=== PATIENT | male | born 1990 | race African-American/Black ===

== ENCOUNTER 2023-03-16 21:54 | Emergency (ER) | payer OTHER ==
[~2023-03-16] VITALS: Ht 182.9 cm; Wt 92.7 kg
[2023-03-16] MEDS ORDERED: diphenhydrAMINE 50MG/ML VIAL IM ONE (22:00)
[2023-03-16] MEDS ORDERED: LORazepam 2 MG/ML 1ML VIAL IM STA (22:00)
[2023-03-16] MEDS ORDERED: HALOPERIDOL 5MG/ML 1ML VIAL IM ONE (22:00)
[2023-03-16 22:26] LABS: BASO # 0.1 10^3/uL (0.0-0.2); BASO % 0.4 % (0.0-1.0); EOS # 0.2 10^3/uL (0.0-0.5); EOS % 1.5 % (0.0-3.0); HEMATOCRIT 45.8 % (42.0-52.0); HEMOGLOBIN 14.7 g/dl (13.5-17.5); LYMPH # 3.6 10^3/uL (1.5-5.0); LYMPH % 25.9 % (24.0-44.0); MEAN CORPUSCULAR HEMOGLOBIN 26.6 pg (27.0-33.0); MEAN CORPUSCULAR HGB CONC 32.1 g/dl (32.0-36.5); MONO # 1.1 10^3/uL (0.0-0.8); MONO % 7.8 % (2.0-8.0); NEUTROPHILS # 8.8 10^3/uL (1.5-8.5); NEUTROPHILS % 63.9 % (36.0-66.0); PLATELET COUNT, AUTOMATED 404 10^3/uL (150-450); RED BLOOD COUNT 5.52 10^6/uL (4.30-6.10); WHITE BLOOD COUNT 13.8 10^3/uL (4.0-10.0)
[2023-03-16 22:49] LABS: ALBUMIN 4.2 G/DL (3.2-5.2); ALKALINE PHOSPHATASE 72 U/L (46-116); ALT/SGPT 23 U/L (7.0-40); AST/SGOT 40 U/L (<34); BILIRUBIN,DIRECT < 0.1 MG/DL (<0.4); BILIRUBIN,TOTAL 0.3 MG/DL (0.3-1.2); BLOOD UREA NITROGEN 20 MG/DL (9-23); CALCIUM LEVEL 8.6 MG/DL (8.5-10.1); CARBON DIOXIDE LEVEL 24 MMOL/L (20-31); CHLORIDE LEVEL 105 MMOL/L (98-107); CREATININE FOR GFR 1.38 MG/DL (0.70-1.30); GLOMERULAR FILTRATION RATE > 60.0 (>60); GLUCOSE, FASTING 77 MG/DL (60-100); POTASSIUM SERUM 4.3 MMOL/L (3.5-5.1); SALICYLATE LEVEL < 3.0 MG/DL (<30); SODIUM LEVEL 144 MMOL/L (136-145); TOTAL PROTEIN 7.3 G/DL (5.7-8.2)
[2023-03-16] MEDS ORDERED: NS 1,000 ML IV ONE ×3 (22:50)
[2023-03-16 22:52] LABS: THYROID STIMULATING HORMONE 1.007 uIU/ML (0.55-4.78)
[2023-03-16 23:21] LABS: CPK CREATINE PHOSPHOKINASE 791 U/L (46-171); ETHYL ALCOHOL (ETHANOL) 0.317 % (0.000-0.010)
[2023-03-16] MEDS ORDERED: NALOXONE 2MG/2ML SYRINGE IV STA (23:22)
[2023-03-16 23:42] LABS: CANNABINOIDS URINE NEGATIVE (NEGATIVE); PHENCYCLIDINE URINE NEGATIVE (NEGATIVE)
[2023-03-16 23:43] LABS: AMPHETAMINES LEVEL URINE NEGATIVE (NEGATIVE); BARBITURATES URINE NEGATIVE (NEGATIVE); BENZODIAZEPINES URINE NEGATIVE (NEGATIVE); COCAINE METABOLITE URINE NEGATIVE (NEGATIVE); METHADONE URINE NEGATIVE (NEGATIVE); OPIATES URINE NEGATIVE (NEGATIVE)
[2023-03-16 23:51] LABS: ABG BASE EXCESS -6.7 (-2.0-2.0); ABG O2 SATURATION 96.8 % (95.0-99.0); ABG PARTIAL PRESSURE CO2 43.9 mmHg (35.0-45.0); ABG PARTIAL PRESSURE O2 103.9 mmHg (75.0-100.0); ABG STANDARD HCO3 19.1 MMOL/L. (22.0-26.0); ABG TOTAL CO2 21.3 MMOL/L (22.0-29.0); ABG pH (ARTERIAL) 7.276 UNITS (7.350-7.450)
[2023-03-17] MEDS ORDERED: UNRESOLVED CLARIFICATION ENTRY XX SCH (00:01)
[2023-03-17 09:04] VITALS: BP 122/54; TEMP 98.1; O2SAT 97
[2023-03-17] MEDS ORDERED: ZOLO25TA PO (23:11)
[2023-03-17] MEDS ORDERED: METO25TA4 PO (23:11)
[2023-03-17] MEDS ORDERED: GABA-282 PO (23:11)
[2023-03-17] MEDS ORDERED: HYDR50TA70 PO (23:11)
== END 2023-03-17 09:09 | disposition home or self-care (01) ==
LOC: M ED 21:54
DX: F10.129 Alcohol abuse with intoxication, unspecified (principal); R91.8 Other nonspecific abnormal finding of lung field; F11.10 Opioid abuse, uncomplicated
CPT/HCPCS: 36600; 71045; 80048; 80076; 80143; 80307; 82077; 82550; 82803; 83605; 84443; 85025; 93005; 93041; 94760; 96361; 96372; 96374; 99291; J1200; J1630; J2060; J2310

== ENCOUNTER 2023-03-17 23:06 | Emergency (ER) | payer OTHER, SELFPAY ==
[~2023-03-17] VITALS: Ht 193 cm; Wt 88.6 kg
[2023-03-17] MEDS ORDERED: HYDR50TA70 PO (23:11)
[2023-03-17] MEDS ORDERED: ZOLO25TA PO (23:11)
[2023-03-17] MEDS ORDERED: GABA-282 PO (23:11)
[2023-03-17] MEDS ORDERED: METO25TA4 PO (23:11)
[2023-03-17] MEDS ORDERED: LORazepam 2 MG TAB PO PRN (23:55)
[2023-03-17] MEDS ORDERED: OXAZEPAM 15MG CAP PO ONE (23:55)
[2023-03-18 00:15] LABS: BASO % 0.3 % (0.0-1.0); EOS # 0.2 10^3/uL (0.0-0.5); EOS % 2.1 % (0.0-3.0); HEMATOCRIT 39.9 % (42.0-52.0); HEMOGLOBIN 12.9 g/dl (13.5-17.5); LYMPH # 2.3 10^3/uL (1.5-5.0); LYMPH % 27.1 % (24.0-44.0); MEAN CORPUSCULAR HEMOGLOBIN 26.5 pg (27.0-33.0); MEAN CORPUSCULAR HGB CONC 32.3 g/dl (32.0-36.5); MEAN CORPUSCULAR VOLUME 82.1 fl (80.0-96.0); MONO # 0.7 10^3/uL (0.0-0.8); MONO % 8.4 % (2.0-8.0); NEUTROPHILS # 5.3 10^3/uL (1.5-8.5); NEUTROPHILS % 61.8 % (36.0-66.0); PLATELET COUNT, AUTOMATED 351 10^3/uL (150-450); RED BLOOD COUNT 4.86 10^6/uL (4.30-6.10); WHITE BLOOD COUNT 8.6 10^3/uL (4.0-10.0)
[2023-03-18] MEDS: THIAMINE 100 MG TAB PO SCH ×2 (00:20→07:36)
[2023-03-18 00:39] LABS: ETHYL ALCOHOL (ETHANOL) 0.094 % (0.000-0.010)
[2023-03-18 00:40] LABS: SALICYLATE LEVEL < 3.0 MG/DL (<30)
[2023-03-18 00:44] LABS: ALBUMIN 3.7 G/DL (3.2-5.2); ALKALINE PHOSPHATASE 77 U/L (46-116); ALT/SGPT 42 U/L (7.0-40); AST/SGOT 132 U/L (<34); BILIRUBIN,DIRECT 0.1 MG/DL (<0.4); BILIRUBIN,TOTAL 0.3 MG/DL (0.3-1.2); BLOOD UREA NITROGEN 16 MG/DL (9-23); CALCIUM LEVEL 8.4 MG/DL (8.5-10.1); CARBON DIOXIDE LEVEL 26 MMOL/L (20-31); CHLORIDE LEVEL 108 MMOL/L (98-107); CREATININE FOR GFR 1.01 MG/DL (0.70-1.30); GLOMERULAR FILTRATION RATE > 60.0 (>60); GLUCOSE, FASTING 118 MG/DL (60-100); POTASSIUM SERUM 3.9 MMOL/L (3.5-5.1); SODIUM LEVEL 140 MMOL/L (136-145); THYROID STIMULATING HORMONE 0.406 uIU/ML (0.55-4.78); TOTAL PROTEIN 6.8 G/DL (5.7-8.2)
[2023-03-18 02:09] LABS: AMPHETAMINES LEVEL URINE NEGATIVE (NEGATIVE); BARBITURATES URINE NEGATIVE (NEGATIVE); BENZODIAZEPINES URINE NEGATIVE (NEGATIVE); CANNABINOIDS URINE NEGATIVE (NEGATIVE); COCAINE METABOLITE URINE NEGATIVE (NEGATIVE); METHADONE URINE NEGATIVE (NEGATIVE); OPIATES URINE NEGATIVE (NEGATIVE); PHENCYCLIDINE URINE NEGATIVE (NEGATIVE)
[2023-03-18 08:52] VITALS: BP 135/75; TEMP 98; O2SAT 98
[2023-03-18] MEDS ORDERED: FOLIC ACID 1MG TAB PO SCH (09:00)
[2023-03-18] MEDS ORDERED: MULTIVITAMINS/MINERALS THERAP 1 TAB PO SCH (09:00)
[2023-03-19] MEDS ORDERED: SERT50TA29 PO (11:11)
[2023-03-19] MEDS ORDERED: METO1TAB32 PO (11:11)
== END 2023-03-18 08:58 | disposition home or self-care (01) ==
LOC: M ED 23:06
DX: F10.220 Alcohol dependence with intoxication, uncomplicated (principal); Z59.00 Homelessness unspecified; F41.9 Anxiety disorder, unspecified; Z20.822 Contact with and (suspected) exposure to COVID-19; Z79.899 Other long term (current) drug therapy

== ENCOUNTER 2023-03-19 07:56 | Emergency (ER) | payer OTHER ==
[~2023-03-19] VITALS: Ht 193 cm; Wt 90.3 kg
[~2023-03-19 07:56] MED LIST: GABA-282 PO; HYDR50TA70 PO; METO25TA4 PO; ZOLO25TA PO
[2023-03-19 10:20] VITALS: TEMP 96.8; O2SAT 99
[2023-03-19] MEDS ORDERED: METO1TAB32 PO (11:11)
[2023-03-19] MEDS ORDERED: SERT50TA29 PO (11:11)
[2023-03-19] MEDS ORDERED: MED REC IN PROGRESS XX SCH (11:30)
[2023-03-19 11:42] LABS: HEMATOCRIT 42.1 % (42.0-52.0); HEMOGLOBIN 13.7 g/dl (13.5-17.5); MEAN CORPUSCULAR HEMOGLOBIN 26.4 pg (27.0-33.0); MEAN CORPUSCULAR HGB CONC 32.5 g/dl (32.0-36.5); MEAN CORPUSCULAR VOLUME 81.3 fl (80.0-96.0); PLATELET COUNT, AUTOMATED 365 10^3/uL (150-450); RED BLOOD COUNT 5.18 10^6/uL (4.30-6.10); WHITE BLOOD COUNT 7.6 10^3/uL (4.0-10.0)
[2023-03-19 11:54] VITALS: BP 150/88
[2023-03-19 12:04] LABS: AMPHETAMINES LEVEL URINE NEGATIVE (NEGATIVE); BARBITURATES URINE NEGATIVE (NEGATIVE)
[2023-03-19 12:05] LABS: BENZODIAZEPINES URINE NEGATIVE (NEGATIVE); CANNABINOIDS URINE NEGATIVE (NEGATIVE); COCAINE METABOLITE URINE NEGATIVE (NEGATIVE); ETHYL ALCOHOL (ETHANOL) 0.279 % (0.000-0.010); METHADONE URINE NEGATIVE (NEGATIVE); OPIATES URINE NEGATIVE (NEGATIVE); PHENCYCLIDINE URINE NEGATIVE (NEGATIVE)
[2023-03-19] MEDS ORDERED: LORazepam 2 MG TAB PO PRN (12:05)
[2023-03-19 12:07] LABS: SALICYLATE LEVEL < 3.0 MG/DL (<30)
[2023-03-19 12:09] LABS: THYROID STIMULATING HORMONE 0.413 uIU/ML (0.55-4.78)
[2023-03-19] MEDS ORDERED: OXAZEPAM 15MG CAP PO ONE (12:10)
[2023-03-19 12:11] LABS: ALKALINE PHOSPHATASE 82 U/L (46-116); ALT/SGPT 51 U/L (7.0-40); AST/SGOT 111 U/L (<34); BILIRUBIN,DIRECT 0.2 MG/DL (<0.4); BILIRUBIN,TOTAL 0.5 MG/DL (0.3-1.2); BLOOD UREA NITROGEN 7 MG/DL (9-23); CARBON DIOXIDE LEVEL 30 MMOL/L (20-31); CHLORIDE LEVEL 109 MMOL/L (98-107); CREATININE FOR GFR 0.82 MG/DL (0.70-1.30); GLOMERULAR FILTRATION RATE > 60.0 (>60); GLUCOSE, FASTING 104 MG/DL (60-100); POTASSIUM SERUM 4.2 MMOL/L (3.5-5.1); SODIUM LEVEL 147 MMOL/L (136-145); TOTAL PROTEIN 7.1 G/DL (5.7-8.2)
[2023-03-19] MEDS ORDERED: THIAMINE 100 MG TAB PO SCH (21:00)
[2023-03-20] MEDS ORDERED: MULTIVITAMINS/MINERALS THERAP 1 TAB PO SCH (09:00)
[2023-03-20] MEDS ORDERED: FOLIC ACID 1MG TAB PO SCH (09:00)
[2023-03-20] MEDS ORDERED: NICO1DIS11 TOP (11:17)
[2023-03-20] MEDS ORDERED: BUSP15TA47 PO (11:17)
== END 2023-03-19 13:55 | disposition left against medical advice (07) ==
LOC: M ED 07:56
DX: F10.10 Alcohol abuse, uncomplicated (principal); Z53.9 Procedure and treatment not carried out, unspecified reason; Z59.00 Homelessness unspecified; Q87.418 Marfan syndrome with other cardiovascular manifestations

== ENCOUNTER 2023-03-19 15:14 | Emergency (ER) | payer OTHER ==
[~2023-03-19] VITALS: Ht 193 cm; Wt 92.4 kg
[2023-03-19 15:14] VITALS: BP 134/78; TEMP 98.2; O2SAT 99
[~2023-03-19 15:14] MED LIST changes: +METO1TAB32 PO; +SERT50TA29 PO
[2023-03-20] MEDS ORDERED: NICO1DIS11 TOP (11:17)
[2023-03-20] MEDS ORDERED: BUSP15TA47 PO (11:17)
== END 2023-03-19 17:52 | disposition left against medical advice (07) ==
LOC: M ED 15:14
DX: Z53.21 Procedure and treatment not carried out due to patient leaving prior to being seen by health care provider (principal)

== ENCOUNTER 2023-03-19 17:55 | Emergency (ER) | payer OTHER ==
[~2023-03-19] VITALS: Ht 193 cm; Wt 92.4 kg
[2023-03-19 18:56] LABS: HEMOGLOBIN 13.9 g/dl (13.5-17.5); MEAN CORPUSCULAR HEMOGLOBIN 26.6 pg (27.0-33.0); MEAN CORPUSCULAR HGB CONC 33.1 g/dl (32.0-36.5); MEAN CORPUSCULAR VOLUME 80.5 fl (80.0-96.0); PLATELET COUNT, AUTOMATED 379 10^3/uL (150-450); RED BLOOD COUNT 5.22 10^6/uL (4.30-6.10); WHITE BLOOD COUNT 9.3 10^3/uL (4.0-10.0)
[2023-03-19 19:16] LABS: AMPHETAMINES LEVEL URINE NEGATIVE (NEGATIVE); BARBITURATES URINE NEGATIVE (NEGATIVE); BENZODIAZEPINES URINE NEGATIVE (NEGATIVE); COCAINE METABOLITE URINE NEGATIVE (NEGATIVE); METHADONE URINE NEGATIVE (NEGATIVE)
[2023-03-19 19:17] LABS: CANNABINOIDS URINE NEGATIVE (NEGATIVE); OPIATES URINE NEGATIVE (NEGATIVE); PHENCYCLIDINE URINE NEGATIVE (NEGATIVE)
[2023-03-19 19:20] LABS: ALBUMIN 3.8 G/DL (3.2-5.2); ALKALINE PHOSPHATASE 83 U/L (46-116); ALT/SGPT 52 U/L (7.0-40); AST/SGOT 105 U/L (<34); BILIRUBIN,DIRECT 0.1 MG/DL (<0.4); BILIRUBIN,TOTAL 0.3 MG/DL (0.3-1.2); BLOOD UREA NITROGEN 5 MG/DL (9-23); CALCIUM LEVEL 9.1 MG/DL (8.5-10.1); CARBON DIOXIDE LEVEL 27 MMOL/L (20-31); CHLORIDE LEVEL 109 MMOL/L (98-107); GLOMERULAR FILTRATION RATE > 60.0 (>60); GLUCOSE, FASTING 105 MG/DL (60-100); POTASSIUM SERUM 3.9 MMOL/L (3.5-5.1); SALICYLATE LEVEL < 3.0 MG/DL (<30); SODIUM LEVEL 142 MMOL/L (136-145); TOTAL PROTEIN 7.2 G/DL (5.7-8.2)
[2023-03-19 19:22] LABS: THYROID STIMULATING HORMONE 0.856 uIU/ML (0.55-4.78)
[2023-03-19] MEDS ORDERED: MED REC IN PROGRESS XX SCH (19:35)
[2023-03-19 19:55] LABS: ETHYL ALCOHOL (ETHANOL) 0.332 % (0.000-0.010)
[2023-03-19] MEDS ORDERED: LORazepam 2 MG TAB PO PRN (20:40)
[2023-03-19] MEDS: THIAMINE 100 MG TAB PO SCH (21:47)
[2023-03-19] MEDS ORDERED: MED REC CURRENTLY UNOBTAINABLE XX SCH (23:45)
[2023-03-20] MEDS ORDERED: FOLIC ACID 1MG TAB PO SCH (09:00)
[2023-03-20] MEDS ORDERED: MULTIVITAMINS/MINERALS THERAP 1 TAB PO SCH (09:00)
[2023-03-20] MEDS: THIAMINE 100 MG TAB PO SCH (09:55)
[2023-03-20] MEDS ORDERED: NICO1DIS11 TOP (11:17)
[2023-03-20] MEDS ORDERED: BUSP15TA47 PO (11:17)
[2023-03-20] MEDS ORDERED: HOME MED LIST COMPLETE! XX SCH (11:40)
[2023-03-20 15:36] VITALS: BP 152/83; TEMP 98.7; O2SAT 99
== END 2023-03-20 15:43 | disposition home or self-care (01) ==
LOC: M ED 17:55
DX: F10.129 Alcohol abuse with intoxication, unspecified (principal); F41.9 Anxiety disorder, unspecified; F32.A Depression, unspecified; Y90.8 Blood alcohol level of 240 mg/100 ml or more; Z79.899 Other long term (current) drug therapy

== ENCOUNTER 2023-03-20 21:43 | Emergency (ER) | payer OTHER ==
[~2023-03-20] VITALS: Ht 193 cm; Wt 88.6 kg
[~2023-03-20 21:43] MED LIST changes: +BUSP15TA47 PO; +NICO1DIS11 TOP
[2023-03-20 21:44] VITALS: BP 156/85; TEMP 99; O2SAT 96
== END 2023-03-21 01:44 | disposition home or self-care (01) ==
LOC: M ED 21:43
DX: Z59.00 Homelessness unspecified (principal); F10.120 Alcohol abuse with intoxication, uncomplicated; F17.210 Nicotine dependence, cigarettes, uncomplicated; Z79.899 Other long term (current) drug therapy

== ENCOUNTER 2023-03-22 00:53 | Emergency (ER) | payer OTHER ==
[~2023-03-22] VITALS: Ht 193 cm; Wt 88.8 kg
[2023-03-22 00:55] VITALS: BP 154/88; TEMP 98.1; O2SAT 98
== END 2023-03-22 04:36 | disposition left against medical advice (07) ==
LOC: M ED 00:53
DX: Z53.21 Procedure and treatment not carried out due to patient leaving prior to being seen by health care provider (principal)

== ENCOUNTER 2023-04-04 12:30 | Emergency (ER) | payer OTHER ==
[~2023-04-04] VITALS: Ht 193 cm; Wt 88.6 kg
[2023-04-04 12:30] VITALS: BP 122/75; TEMP 97.4; O2SAT 95
[2023-04-04] MEDS ORDERED: CLON0.5T2 (12:42)
[2023-04-04] MEDS ORDERED: HYDR50CA2 (12:42)
== END 2023-04-04 13:09 | disposition home or self-care (01) ==
LOC: M ED 12:30
DX: Z76.0 Encounter for issue of repeat prescription (principal); F41.9 Anxiety disorder, unspecified

== ENCOUNTER 2023-04-14 05:42 | Emergency (ER) | payer OTHER ==
[~2023-04-14 05:42] MED LIST changes: +CLON0.5T2 PO; +HYDR50CA2
[2023-04-14] MEDS ORDERED: HALOPERIDOL 5MG/ML 1ML VIAL As Ordered ONE (05:53)
[2023-04-14] MEDS: LORazepam 2 MG/ML 1ML VIAL IM ONE (05:58)
[2023-04-14] MEDS: HALOPERIDOL 5MG/ML 1ML VIAL IM ONE (05:58)
[2023-04-14 06:48] LABS: HEMATOCRIT 38.2 % (42.0-52.0); HEMOGLOBIN 12.2 g/dl (13.5-17.5); MEAN CORPUSCULAR HEMOGLOBIN 27.1 pg (27.0-33.0); MEAN CORPUSCULAR HGB CONC 31.9 g/dl (32.0-36.5); MEAN CORPUSCULAR VOLUME 84.7 fl (80.0-96.0); PLATELET COUNT, AUTOMATED 397 10^3/uL (150-450); RED BLOOD COUNT 4.51 10^6/uL (4.30-6.10); WHITE BLOOD COUNT 8.9 10^3/uL (4.0-10.0)
[2023-04-14 07:14] LABS: SALICYLATE LEVEL < 3.0 MG/DL (<30)
[2023-04-14 07:15] LABS: ALBUMIN 3.4 G/DL (3.2-5.2); ALKALINE PHOSPHATASE 68 U/L (46-116); ALT/SGPT 25 U/L (7.0-40); AST/SGOT 29 U/L (<34); BILIRUBIN,DIRECT < 0.1 MG/DL (<0.4); BILIRUBIN,TOTAL < 0.2 MG/DL (0.3-1.2); BLOOD UREA NITROGEN 11 MG/DL (9-23); CARBON DIOXIDE LEVEL 23 MMOL/L (20-31); CHLORIDE LEVEL 107 MMOL/L (98-107); CREATININE FOR GFR 1.07 MG/DL (0.70-1.30); GLOMERULAR FILTRATION RATE > 60.0 (>60); GLUCOSE, FASTING 102 MG/DL (60-100); POTASSIUM SERUM 4.2 MMOL/L (3.5-5.1); SODIUM LEVEL 140 MMOL/L (136-145); TOTAL PROTEIN 6.4 G/DL (5.7-8.2)
[2023-04-14 07:17] LABS: THYROID STIMULATING HORMONE 2.163 uIU/ML (0.55-4.78)
[2023-04-14 07:24] LABS: BARBITURATES URINE NEGATIVE (NEGATIVE); BENZODIAZEPINES URINE NEGATIVE (NEGATIVE); CANNABINOIDS URINE NEGATIVE (NEGATIVE); COCAINE METABOLITE URINE NEGATIVE (NEGATIVE); METHADONE URINE NEGATIVE (NEGATIVE); OPIATES URINE NEGATIVE (NEGATIVE); PHENCYCLIDINE URINE NEGATIVE (NEGATIVE)
[2023-04-14 07:29] LABS: AMPHETAMINES LEVEL URINE POSITIVE (NEGATIVE)
[2023-04-14 08:09] LABS: ETHYL ALCOHOL (ETHANOL) 0.327 % (0.000-0.010)
[2023-04-14 18:06] VITALS: BP 127/73; TEMP 97.1; O2SAT 95
== END 2023-04-14 18:09 | disposition home or self-care (01) ==
LOC: M ED 05:42
DX: F10.120 Alcohol abuse with intoxication, uncomplicated (principal); F15.120 Other stimulant abuse with intoxication, uncomplicated; F41.9 Anxiety disorder, unspecified; Z79.899 Other long term (current) drug therapy
CPT/HCPCS: 51701; 80048; 80076; 80143; 80307; 82077; 84443; 85027; 87635; 96372; 99285; J1630; J2060

== ENCOUNTER 2023-04-18 23:51 | Emergency (ER) | payer OTHER ==
[~2023-04-18] VITALS: Ht 223.5 cm; Wt 88.7 kg
[2023-04-19] MEDS ORDERED: HALOPERIDOL 5MG/ML 1ML VIAL As Ordered ONE (00:12)
[2023-04-19] MEDS: LORazepam 2 MG/ML 1ML VIAL IM ONE (00:21)
[2023-04-19] MEDS: diphenhydrAMINE 50MG/ML VIAL IM ONE (00:21)
[2023-04-19] MEDS: HALOPERIDOL 5MG/ML 1ML VIAL IM ONE (00:22)
[2023-04-19 00:34] LABS: HEMATOCRIT 40.3 % (42.0-52.0); HEMOGLOBIN 13.3 g/dl (13.5-17.5); MEAN CORPUSCULAR HEMOGLOBIN 26.9 pg (27.0-33.0); MEAN CORPUSCULAR VOLUME 81.6 fl (80.0-96.0); PLATELET COUNT, AUTOMATED 371 10^3/uL (150-450); RED BLOOD COUNT 4.94 10^6/uL (4.30-6.10); WHITE BLOOD COUNT 6.9 10^3/uL (4.0-10.0)
[2023-04-19 00:52] LABS: AMPHETAMINES LEVEL URINE NEGATIVE (NEGATIVE); BARBITURATES URINE NEGATIVE (NEGATIVE); CANNABINOIDS URINE NEGATIVE (NEGATIVE); COCAINE METABOLITE URINE NEGATIVE (NEGATIVE); METHADONE URINE NEGATIVE (NEGATIVE); OPIATES URINE NEGATIVE (NEGATIVE); PHENCYCLIDINE URINE NEGATIVE (NEGATIVE)
[2023-04-19 00:53] LABS: BENZODIAZEPINES URINE POSITIVE (NEGATIVE)
[2023-04-19 00:55] LABS: ETHYL ALCOHOL (ETHANOL) 0.293 % (0.000-0.010)
[2023-04-19 00:56] LABS: CPK CREATINE PHOSPHOKINASE 408 U/L (46-171); SALICYLATE LEVEL < 3.0 MG/DL (<30)
[2023-04-19 00:57] LABS: ALBUMIN 3.7 G/DL (3.2-5.2); ALKALINE PHOSPHATASE 76 U/L (46-116); ALT/SGPT 21 U/L (7.0-40); AST/SGOT 29 U/L (<34); BILIRUBIN,DIRECT < 0.1 MG/DL (<0.4); BILIRUBIN,TOTAL 0.2 MG/DL (0.3-1.2); BLOOD UREA NITROGEN 8 MG/DL (9-23); CALCIUM LEVEL 8.3 MG/DL (8.5-10.1); CARBON DIOXIDE LEVEL 25 MMOL/L (20-31); CHLORIDE LEVEL 107 MMOL/L (98-107); CREATININE FOR GFR 0.99 MG/DL (0.70-1.30); GLOMERULAR FILTRATION RATE > 60.0 (>60); GLUCOSE, FASTING 95 MG/DL (60-100); POTASSIUM SERUM 3.8 MMOL/L (3.5-5.1); SODIUM LEVEL 140 MMOL/L (136-145); TOTAL PROTEIN 6.9 G/DL (5.7-8.2)
[2023-04-19 01:07] LABS: RSV AMPLIFICATION NEGATIVE (NEGATIVE)
[2023-04-19] MEDS: NS 1,000 ML IV ONE ×2 (05:25→05:43)
[2023-04-19] MEDS ORDERED: NICOTINE 21MG/24HR 1 EA TRANSDERMAL TOP SCH ×2 (09:00)
[2023-04-19 12:38] VITALS: BP 123/82
[2023-04-19] MEDS: METOPROLOL SUCC *XL* 25MG TAB (TopROL *XL*) PO SCH (12:38)
[2023-04-19] MEDS: busPIRone 5 MG TAB PO SCH (12:38)
[2023-04-19] MEDS: SERTRALINE HCL 50 MG TAB PO SCH (12:38)
[2023-04-19] MEDS: GABAPENTIN 300 MG CAP PO SCH (12:38)
[2023-04-19] MEDS ORDERED: B-1100TA2 PO (16:27)
[2023-04-19] MEDS ORDERED: DIAZ10TA2 PO (16:27)
[2023-04-19] MEDS ORDERED: OLAN1TAB20 PO (16:27)
[2023-04-19] MEDS ORDERED: FOLI1TAB11 PO (16:27)
[2023-04-19] MEDS ORDERED: HYDR50CA2 PO (16:31)
[2023-04-19] MEDS ORDERED: MAGN400T2 PO (16:38)
[2023-04-19] MEDS ORDERED: HOME MED LIST COMPLETE! XX SCH (16:50)
[2023-04-19 17:25] VITALS: BP 139/86; TEMP 98.6; O2SAT 98
== END 2023-04-19 17:43 | disposition home or self-care (01) ==
LOC: M ED 23:51
DX: F10.120 Alcohol abuse with intoxication, uncomplicated (principal); F19.10 Other psychoactive substance abuse, uncomplicated; F43.0 Acute stress reaction; I45.19 Other right bundle-branch block; Z79.899 Other long term (current) drug therapy
CPT/HCPCS: 73130; 80048; 80076; 80143; 80307; 82077; 82550; 84443; 85027; 87631; 93005; 96361; 96372; 99285; J1200; J1630; J2060

== ENCOUNTER 2023-06-05 11:57 | Emergency (ER) | payer OTHER ==
[~2023-06-05 11:57] MED LIST changes: +B-1100TA2 PO; +DIAZ10TA2 PO; +FOLI1TAB11 PO; +HYDR50CA2 PO; +MAGN400T2 PO; +OLAN1TAB20 PO
[2023-06-05 11:58] VITALS: BP 135/65; TEMP 98; O2SAT 99
[2023-06-05] MEDS ORDERED: BUPR-71 PO (19:25)
== END 2023-06-05 13:08 | disposition left against medical advice (07) ==
LOC: M ED 12:48
DX: F10.120 Alcohol abuse with intoxication, uncomplicated (principal); Z79.899 Other long term (current) drug therapy; Z53.9 Procedure and treatment not carried out, unspecified reason

== ENCOUNTER 2023-06-05 14:35 | Emergency (ER) | payer OTHER ==
[2023-06-05 14:54] LABS: BASO # 0.1 10^3/uL (0.0-0.2); BASO % 0.7 % (0.0-1.0); EOS # 0.4 10^3/uL (0.0-0.5); EOS % 5.5 % (0.0-3.0); HEMATOCRIT 41.9 % (42.0-52.0); HEMOGLOBIN 13.3 g/dl (13.5-17.5); LYMPH # 3.2 10^3/uL (1.5-5.0); LYMPH % 46.6 % (24.0-44.0); MEAN CORPUSCULAR HEMOGLOBIN 27.6 pg (27.0-33.0); MEAN CORPUSCULAR HGB CONC 31.7 g/dl (32.0-36.5); MEAN CORPUSCULAR VOLUME 86.9 fl (80.0-96.0); MONO # 0.5 10^3/uL (0.0-0.8); MONO % 7.6 % (2.0-8.0); NEUTROPHILS # 2.7 10^3/uL (1.5-8.5); NEUTROPHILS % 39.2 % (36.0-66.0); PLATELET COUNT, AUTOMATED 356 10^3/uL (150-450); RED BLOOD COUNT 4.82 10^6/uL (4.30-6.10); WHITE BLOOD COUNT 6.9 10^3/uL (4.0-10.0)
[2023-06-05 15:24] LABS: AMPHETAMINES LEVEL URINE NEGATIVE (NEGATIVE); BARBITURATES URINE NEGATIVE (NEGATIVE); BENZODIAZEPINES URINE NEGATIVE (NEGATIVE); CANNABINOIDS URINE NEGATIVE (NEGATIVE); COCAINE METABOLITE URINE NEGATIVE (NEGATIVE); METHADONE URINE NEGATIVE (NEGATIVE); OPIATES URINE NEGATIVE (NEGATIVE); PHENCYCLIDINE URINE NEGATIVE (NEGATIVE)
[2023-06-05 15:28] LABS: SALICYLATE LEVEL < 3.0 MG/DL (<30)
[2023-06-05 15:58] LABS: ALBUMIN 3.6 G/DL (3.2-5.2); ALKALINE PHOSPHATASE 77 U/L (46-116); ALT/SGPT 21 U/L (7.0-40); AST/SGOT 22 U/L (<34); BILIRUBIN,DIRECT < 0.1 MG/DL (<0.4); BILIRUBIN,TOTAL < 0.2 MG/DL (0.3-1.2); BLOOD UREA NITROGEN < 5 MG/DL (9-23); CALCIUM LEVEL 8.7 MG/DL (8.5-10.1); CARBON DIOXIDE LEVEL 27 MMOL/L (20-31); CHLORIDE LEVEL 111 MMOL/L (98-107); CPK CREATINE PHOSPHOKINASE 231 U/L (46-171); GLOMERULAR FILTRATION RATE > 60.0 (>60); GLUCOSE, FASTING 111 MG/DL (60-100); POTASSIUM SERUM 4.4 MMOL/L (3.5-5.1); SODIUM LEVEL 148 MMOL/L (136-145); THYROID STIMULATING HORMONE 0.118 uIU/ML (0.55-4.78); TOTAL PROTEIN 6.6 G/DL (5.7-8.2)
[2023-06-05] MEDS ORDERED: BUPR-71 PO (19:25)
[2023-06-05] MEDS ORDERED: HOME MED LIST COMPLETE! XX SCH (19:30)
[2023-06-05 22:55] VITALS: BP 128/78; TEMP 98.7; O2SAT 98
== END 2023-06-06 00:13 | disposition home or self-care (01) ==
LOC: M ED 14:35 → EDBD 14:35 → M ED 06-06 00:13
DX: F43.0 Acute stress reaction (principal); F10.120 Alcohol abuse with intoxication, uncomplicated; Z79.899 Other long term (current) drug therapy

== ENCOUNTER 2023-06-13 03:36 | Inpatient (IN) | payer OTHER ==
[~2023-06-13] VITALS: Ht 182.9 cm; Wt 89.2 kg
[2023-06-13] VITALS (24 sets, daily range): BP systolic 85–141; BP diastolic 49–86; TEMP 97.7–98.9; O2SAT 92–100
[~2023-06-13 03:36] MED LIST changes: +BUPR-71 PO
[2023-06-13] MEDS ORDERED: HALOPERIDOL 5MG/ML 1ML VIAL As Ordered ONE (03:41)
[2023-06-13] MEDS ORDERED: diphenhydrAMINE 50MG/ML VIAL As Ordered ONE (03:41)
[2023-06-13] MEDS ORDERED: LORazepam 2 MG/ML 1ML VIAL As Ordered ONE (03:42)
[2023-06-13] MEDS: HALOPERIDOL 5MG/ML 1ML VIAL IM ONE (03:49)
[2023-06-13] MEDS: diphenhydrAMINE 50MG/ML VIAL IM ONE (03:49)
[2023-06-13] MEDS: LORazepam 2 MG/ML 1ML VIAL IM ONE (03:49)
[2023-06-13] MEDS: NS 1,000 ML IV ONE ×2 (04:20→05:28)
[2023-06-13 04:34] LABS: BASO % 0.5 % (0.0-1.0); EOS # 0.1 10^3/uL (0.0-0.5); EOS % 1.6 % (0.0-3.0); HEMATOCRIT 40.4 % (42.0-52.0); HEMOGLOBIN 12.6 g/dl (13.5-17.5); LYMPH # 1.4 10^3/uL (1.5-5.0); LYMPH % 16.3 % (24.0-44.0); MEAN CORPUSCULAR HEMOGLOBIN 27.7 pg (27.0-33.0); MEAN CORPUSCULAR HGB CONC 31.2 g/dl (32.0-36.5); MEAN CORPUSCULAR VOLUME 88.8 fl (80.0-96.0); MONO # 0.4 10^3/uL (0.0-0.8); MONO % 4.9 % (2.0-8.0); NEUTROPHILS # 6.3 10^3/uL (1.5-8.5); NEUTROPHILS % 75.7 % (36.0-66.0); PLATELET COUNT, AUTOMATED 323 10^3/uL (150-450); RED BLOOD COUNT 4.55 10^6/uL (4.30-6.10); WHITE BLOOD COUNT 8.4 10^3/uL (4.0-10.0)
[2023-06-13] MEDS: MIDAZOLAM 100MG/100ML-0.9%NACL 100 MG in IV 1 EA IV SCH ×2 (04:41→23:12)
[2023-06-13 04:51] LABS: ABG HCO3 22.9 MMOL/L (22.0-26.0); ABG PARTIAL PRESSURE CO2 54.7 mmHg (35.0-45.0); ABG PARTIAL PRESSURE O2 92.6 mmHg (75.0-100.0); ABG STANDARD HCO3 20.3 MMOL/L. (22.0-26.0); ABG TOTAL CO2 24.6 MMOL/L (22.0-29.0)
[2023-06-13 05:00] LABS: BLOOD UREA NITROGEN 10 MG/DL (9-23); CALCIUM LEVEL 7.8 MG/DL (8.5-10.1); CARBON DIOXIDE LEVEL 28 MMOL/L (20-31); CHLORIDE LEVEL 106 MMOL/L (98-107); CREATININE FOR GFR 1.23 MG/DL (0.70-1.30); GLOMERULAR FILTRATION RATE > 60.0 (>60); GLUCOSE, FASTING 124 MG/DL (60-100); POTASSIUM SERUM 4.2 MMOL/L (3.5-5.1); SALICYLATE LEVEL < 3.0 MG/DL (<30); SODIUM LEVEL 144 MMOL/L (136-145)
[2023-06-13 05:06] LABS: AMPHETAMINES LEVEL URINE NEGATIVE (NEGATIVE)
[2023-06-13 05:07] LABS: BENZODIAZEPINES URINE NEGATIVE (NEGATIVE); CANNABINOIDS URINE NEGATIVE (NEGATIVE); PHENCYCLIDINE URINE NEGATIVE (NEGATIVE)
[2023-06-13 05:09] LABS: ETHYL ALCOHOL (ETHANOL) 0.284 % (0.000-0.010)
[2023-06-13 05:11] LABS: BARBITURATES URINE NEGATIVE (NEGATIVE); COCAINE METABOLITE URINE NEGATIVE (NEGATIVE)
[2023-06-13 05:24] LABS: METHADONE URINE NEGATIVE (NEGATIVE); OPIATES URINE NEGATIVE (NEGATIVE)
[2023-06-13] MEDS: ETOMIDATE INJ 20MG/10ML VIAL IV STA (05:27)
[2023-06-13] MEDS: ROCURONIUM BROMIDE 50MG/5ML VIAL IV SCH (05:27)
[2023-06-13] MEDS ORDERED: ALBUTEROL SULFATE 2.5MG/0.5ML INH NEB SOLN NEB PRN (05:35)
[2023-06-13] MEDS ORDERED: MED REC CURRENTLY UNOBTAINABLE XX SCH (05:55)
[2023-06-13 06:19] LABS: ABG BASE EXCESS -5.9 (-2.0-2.0); ABG O2 SATURATION 98.5 % (95.0-99.0); ABG PARTIAL PRESSURE CO2 40.6 mmHg (35.0-45.0); ABG PARTIAL PRESSURE O2 147.8 mmHg (75.0-100.0); ABG STANDARD HCO3 19.7 MMOL/L. (22.0-26.0); ABG TOTAL CO2 21.2 MMOL/L (22.0-29.0)
[2023-06-13] MEDS: THIAMINE 200MG 2ML VIAL IM ONE (06:31)
[2023-06-13] MEDS ORDERED: MIDAZOLAM INJ 2MG/2ML VIAL As Ordered ONE (08:07)
[2023-06-13] MEDS: LR 1,000 ML IV ONE (08:21)
[2023-06-13] MEDS: FOLIC ACID 1MG TAB PO SCH (08:21)
[2023-06-13] MEDS: MULTIVITAMINS/MINERALS THERAP 1 TAB PO SCH (08:22)
[2023-06-13] MEDS: LR 1,000 ML IV SCH (08:22)
[2023-06-13] MEDS: PANTOPRAZOLE 40MG VIAL IV SCH (08:22)
[2023-06-13] MEDS: MIDAZOLAM INJ 2MG/2ML VIAL IV PRN (09:34)
[2023-06-13] MEDS: dexmedeTOMidine 200 MCG in IV 1 EA IV SCH (09:45)
[2023-06-13] MEDS ORDERED: MULT400T10 PO (09:56)
[2023-06-13] MEDS ORDERED: BUPR150T12 PO (09:56)
[2023-06-13] MEDS ORDERED: ACAM0.05 PO (09:56)
[2023-06-13] MEDS ORDERED: ONDA-83 PO (09:56)
[2023-06-13] MEDS ORDERED: GABA800T4 PO (09:56)
[2023-06-13] MEDS ORDERED: HOME MED LIST COMPLETE! XX SCH ×2 (10:00→18:50)
[2023-06-13] MEDS: HEPARIN SOD (PORCINE) 5000UNITS/ML 1ML VIAL/SYRINGE SC SCH (14:13)
[2023-06-13] MEDS: fentaNYL 100 MCG/2 ML INJECTION IV PRN (16:32)
[2023-06-13] MEDS ORDERED: FENTANYL DRIP LOCK BOX KEY 1 EACH XX PRN (18:15)
[2023-06-13] MEDS: fentaNYL CITRATE/NaCl 1,000 MCG in IV 1 EA IV SCH (18:37)
[2023-06-14] VITALS (13 sets, daily range): BP systolic 126–150; BP diastolic 69–90; TEMP 98.1–98.9; O2SAT 93–99
[2023-06-14 04:42] LABS: HEMATOCRIT 35.8 % (42.0-52.0); HEMOGLOBIN 11.6 g/dl (13.5-17.5); MEAN CORPUSCULAR HEMOGLOBIN 27.7 pg (27.0-33.0); MEAN CORPUSCULAR HGB CONC 32.4 g/dl (32.0-36.5); MEAN CORPUSCULAR VOLUME 85.4 fl (80.0-96.0); PLATELET COUNT, AUTOMATED 242 10^3/uL (150-450); RED BLOOD COUNT 4.19 10^6/uL (4.30-6.10)
[2023-06-14 05:17] LABS: ALBUMIN 2.5 G/DL (3.2-5.2); ALKALINE PHOSPHATASE 64 U/L (46-116); ALT/SGPT 19 U/L (7.0-40); AST/SGOT 25 U/L (<34); BILIRUBIN,TOTAL 0.5 MG/DL (0.3-1.2); BLOOD UREA NITROGEN 10 MG/DL (9-23); CALCIUM LEVEL 7.7 MG/DL (8.5-10.1); CARBON DIOXIDE LEVEL 27 MMOL/L (20-31); CHLORIDE LEVEL 108 MMOL/L (98-107); CREATININE FOR GFR 0.96 MG/DL (0.70-1.30); GLOMERULAR FILTRATION RATE > 60.0 (>60); GLUCOSE, FASTING 97 MG/DL (60-100); POTASSIUM SERUM 3.8 MMOL/L (3.5-5.1); SODIUM LEVEL 141 MMOL/L (136-145); TOTAL PROTEIN 5.2 G/DL (5.7-8.2)
[2023-06-14 06:08] LABS: ABG BASE EXCESS 1.5 (-2.0-2.0); ABG HCO3 25.5 MMOL/L (22.0-26.0); ABG O2 SATURATION 97.1 % (95.0-99.0); ABG PARTIAL PRESSURE CO2 38.2 mmHg (35.0-45.0); ABG PARTIAL PRESSURE O2 90.9 mmHg (75.0-100.0); ABG STANDARD HCO3 25.8 MMOL/L. (22.0-26.0); ABG TOTAL CO2 26.7 MMOL/L (22.0-29.0); ABG pH (ARTERIAL) 7.443 UNITS (7.350-7.450)
[2023-06-14] MEDS ORDERED: dexmedeTOMidine 200 MCG in IV 1 EA IV SCH (08:27)
[2023-06-14] MEDS ORDERED: THIAMINE 200MG 2ML VIAL IM SCH (09:00)
[2023-06-14] MEDS: THIAMINE 100 MG TAB PO SCH (09:00)
== END 2023-06-14 11:47 | disposition left against medical advice (07) | DRG 133 ==
LOC: EDBD 03:36 → M ED 03:36 → M ED INP 05:32 → M ICU 06:14
PROVIDERS: ADMIT Internal Medicine; ATTEND Internal Medicine Pulmonary Disease
PROC: 0BH17EZ Insertion of Endotracheal Airway into Trachea, Via Natural or Artificial Opening (ICD-10-PCS; principal; 2023-06-13)
PROC: 5A1945Z Respiratory Ventilation, 24-96 Consecutive Hours (ICD-10-PCS; 2023-06-13)
DX: J96.00 Acute respiratory failure, unspecified whether with hypoxia or hypercapnia (principal); F10.221 Alcohol dependence with intoxication delirium; Q87.40 Marfan syndrome, unspecified; F41.9 Anxiety disorder, unspecified; Z79.899 Other long term (current) drug therapy

== ENCOUNTER 2023-06-16 13:11 | Emergency (ER) | payer OTHER ==
[~2023-06-16 13:11] MED LIST changes: +ACAM0.05 PO; +BUPR150T12 PO; +GABA800T4 PO; +MULT400T10 PO; +ONDA-83 PO
[2023-06-16 13:14] VITALS: TEMP 98
[2023-06-16 14:13] LABS: HEMATOCRIT 41.9 % (42.0-52.0); HEMOGLOBIN 13.4 g/dl (13.5-17.5); MEAN CORPUSCULAR HEMOGLOBIN 27.2 pg (27.0-33.0); PLATELET COUNT, AUTOMATED 358 10^3/uL (150-450); RED BLOOD COUNT 4.93 10^6/uL (4.30-6.10); WHITE BLOOD COUNT 8.2 10^3/uL (4.0-10.0)
[2023-06-16 14:38] LABS: SALICYLATE LEVEL < 3.0 MG/DL (<30)
[2023-06-16 14:39] LABS: ALBUMIN 3.4 G/DL (3.2-5.2); ALKALINE PHOSPHATASE 69 U/L (46-116); ALT/SGPT 29 U/L (7.0-40); AST/SGOT 59 U/L (<34); BILIRUBIN,DIRECT < 0.1 MG/DL (<0.4); BILIRUBIN,TOTAL 0.2 MG/DL (0.3-1.2); BLOOD UREA NITROGEN 6 MG/DL (9-23); CALCIUM LEVEL 8.5 MG/DL (8.5-10.1); CARBON DIOXIDE LEVEL 23 MMOL/L (20-31); CHLORIDE LEVEL 107 MMOL/L (98-107); CREATININE FOR GFR 0.91 MG/DL (0.70-1.30); GLOMERULAR FILTRATION RATE > 60.0 (>60); GLUCOSE, FASTING 123 MG/DL (60-100); POTASSIUM SERUM 4.3 MMOL/L (3.5-5.1); SODIUM LEVEL 141 MMOL/L (136-145); THYROID STIMULATING HORMONE 1.477 uIU/ML (0.55-4.78); TOTAL PROTEIN 6.8 G/DL (5.7-8.2)
[2023-06-16 14:40] LABS: AMPHETAMINES LEVEL URINE NEGATIVE (NEGATIVE)
[2023-06-16 14:41] LABS: BARBITURATES URINE NEGATIVE (NEGATIVE); COCAINE METABOLITE URINE NEGATIVE (NEGATIVE); METHADONE URINE NEGATIVE (NEGATIVE); PHENCYCLIDINE URINE NEGATIVE (NEGATIVE)
[2023-06-16 14:53] LABS: BENZODIAZEPINES URINE POSITIVE (NEGATIVE); CANNABINOIDS URINE POSITIVE (NEGATIVE); ETHYL ALCOHOL (ETHANOL) 0.303 % (0.000-0.010); OPIATES URINE POSITIVE (NEGATIVE)
[2023-06-16 15:26] VITALS: O2SAT 100
[2023-06-16 15:30] VITALS: BP 156/94
[2023-06-16] MEDS ORDERED: MED REC COMMENT (23:37)
== END 2023-06-16 16:35 | disposition home or self-care (01) ==
LOC: M ED 13:11
DX: F43.0 Acute stress reaction (principal); F10.120 Alcohol abuse with intoxication, uncomplicated; F32.A Depression, unspecified; Z79.899 Other long term (current) drug therapy; Z79.810 Long term (current) use of selective estrogen receptor modulators (SERMs)

== ENCOUNTER 2023-06-16 18:38 | Emergency (ER) | payer OTHER ==
[2023-06-16] MEDS ORDERED: MED REC COMMENT (23:37)
[2023-06-16] MEDS ORDERED: HOME MED LIST COMPLETE! XX SCH (23:40)
[2023-06-17 08:24] VITALS: BP 157/86; TEMP 99; O2SAT 99
== END 2023-06-17 08:32 | disposition home or self-care (01) ==
LOC: M ED 18:38
DX: F10.120 Alcohol abuse with intoxication, uncomplicated (principal); Z79.899 Other long term (current) drug therapy; Z79.810 Long term (current) use of selective estrogen receptor modulators (SERMs)